=== PATIENT | male | born 1985 | race Caucasian/White ===

== ENCOUNTER 2024-07-21 15:29 | Outpatient (CLI) | payer BC, SELFPAY | END 2024-07-21 15:30 | disposition home or self-care (01) | PROVIDERS: PCP Registered Nurse; Visit Provider Registered Nurse | DX: Z00.00 Encounter for general adult medical examination without abnormal findings (principal); Z13.6 Encounter for screening for cardiovascular disorders; Z13.1 Encounter for screening for diabetes mellitus | CPT/HCPCS: 80061; 82947 ==

== ENCOUNTER 2025-03-09 14:43 | Outpatient (CLI) | payer BC, SELFPAY ==
--- NOTE | 2025-03-09 15:00 | CRLHL7_ITS ---
For Patients: As a result of the Century Cures Act, medical imaging exams and procedure reports are released immediately into your electronic medical record. You may view this report before your referring provider. If you have questions, please contact your health care provider. INDICATION: scrotal pain left COMPARISON: none TECHNIQUE: Garcia scale imaging was performed of the scrotum. In addition color Doppler and spectral Doppler analysis was performed of the testes. FINDINGS: The testes demonstrate normal arterial and venous blood flow on color Doppler and spectral Doppler analysis. The testes have uniform echogenicity with no evidence of a suspicious mass or area of inflammation. The right testis measures 4.9 x 2.1 x 2.7 cm in size and the left testis measures 4.2 x 2.2 x 3.0 cm. The epididymis appears normal bilaterally. Bilateral varicoceles are present. IMPRESSION: Bilateral varicoceles. Normal testicles. Dictated by Ousmane Astudillo MD @ 03/09/2025 7:18:17 PM (Electronically Signed)
== END 2025-03-09 14:44 | disposition home or self-care (01) ==
PROVIDERS: PCP Family Medicine; Visit Provider Family Medicine
DX: N50.82 Scrotal pain (principal); I86.1 Scrotal varices
CPT/HCPCS: 76870; 93976